=== PATIENT | male | born 1945 | race Caucasian/White ===

== ENCOUNTER 2025-07-19 09:15 | Day surgery (SDC) | payer MEDICARE, SELFPAY ==
[2025-07-18 12:31] VITALS: BMI 23.7
[2025-07-19] VITALS (10 sets, daily range): BP systolic 127–163; BP diastolic 69–103; PULSE 55–68; RESP 11–18; TEMP 36.3; O2SAT 95–100; BMI 23.3
[2025-07-19] MEDS: BENZOCAINE 20% (Hurricaine) SPRAY 1 DOSE TOP (11:11)
[2025-07-19] MEDS: SODIUM CHLORIDE 0.9% 500 ML 500 ML 20 ML IV (11:12)
[2025-07-19] MEDS: MIDAZOLAM INJ 1 MG/ML VIAL 2 ML 2 MG IVP (11:15)
[2025-07-19] MEDS: fentaNYL CIT INJ 50 mCg/ML AMP 2ML IVP (11:15)
== END 2025-07-19 12:20 | disposition home or self-care (01) ==
PROVIDERS: PCP Family Medicine; Referring Provider Specialist; Visit Provider Specialist
PROC: (CPT 43239; principal; 2025-07-19 10:15)
DX: K74.60 Unspecified cirrhosis of liver (principal); K29.70 Gastritis, unspecified, without bleeding; I85.10 Secondary esophageal varices without bleeding; Z86.0102 Personal history of hyperplastic colon polyps
CPT/HCPCS: 43235; A4649; J1200; J2250; J3010; J7999; A9270